=== PATIENT | female | born 1990 | race Caucasian/White ===

== ENCOUNTER → 2019-01-14 | Outpatient (REF) | payer OTHER, MEDICAID ==
[2019-01-14 21:45] LABS: CHLAMYDIA DNA AMPLIFICATION NEGATIVE (NEGATIVE); GC DNA AMPLIFICATION NEGATIVE (NEGATIVE)
== END ==
LOC: M SFHCWAGY 15:24
PROVIDERS: ATTEND Nurse Practitioner Women's Health
DX: Z12.4 Encounter for screening for malignant neoplasm of cervix (principal)

== ENCOUNTER → 2019-01-26 | Outpatient (CLI) | payer OTHER ==
--- NOTE | 2019-01-26 17:14 | REP ---
PELVIC ULTRASOUND: Real-time sonographic evaluation of the pelvis was performed utilizing transabdominal technique. Endovaginal exam not performed due to active menstruation. The bladder measures 5.6 x 5.2 x 9.3 cm. The uterus measures 11.6 x 3.3 x 4.9 cm. Endometrial thickness is 2 mm. Ovaries appear normal in size and echo texture, right ovary measuring 3.5 x 1.9 x 2.2 cm and left ovary 3.0 x 1.9 x 2.0 cm. No adnexal mass or free fluid is seen. There is no evidence of ovarian torsion with duplex Doppler evaluation. IMPRESSION: Essentially negative pelvic ultrasound. No adnexal mass or free fluid. Only transabdominal imaging was performed. Endovaginal imaging was not performed due to active menstruation. Electronically Signed by Jd Munoz MD 01/28/2019 10:23 A
== END ==
LOC: M RAD 15:06
PROVIDERS: ATTEND Nurse Practitioner Women's Health
DX: Z84.2 Family history of other diseases of the genitourinary system (principal)

== ENCOUNTER 2019-04-25 18:59 | Emergency (ER) | payer OTHER ==
[~2019-04-25] VITALS: Ht 152.4 cm; Wt 61.4 kg
[2019-04-25] MEDS ORDERED: FLUO10CA15 (19:19)
[2019-04-25] MEDS ORDERED: FAMO40TA3 (19:19)
[2019-04-25 19:54] LABS: BASO # 0.1 10^3/uL (0.0-0.2); BASO % 0.8 % (0.0-1.0); EOS # 0.6 10^3/uL (0.0-0.5); EOS % 6.5 % (0.0-3.0); HEMATOCRIT 38.2 % (36.0-47.0); LYMPH % 34.2 % (24.0-44.0); MEAN CORPUSCULAR HEMOGLOBIN 31.2 pg (27.0-33.0); MEAN CORPUSCULAR VOLUME 91.6 fl (80.0-96.0); MONO # 0.7 10^3/uL (0.0-0.8); MONO % 7.4 % (0.0-5.0); NEUTROPHILS # 4.5 10^3/uL (1.5-8.5); NEUTROPHILS % 50.9 % (36.0-66.0); PLATELET COUNT, AUTOMATED 297 10^3/uL (150-450); RED BLOOD COUNT 4.17 10^6/uL (4.00-5.40); WHITE BLOOD COUNT 8.8 10^3/uL (4.0-10.0)
[2019-04-25] MEDS ORDERED: NS 1,000 ML IV ONE (20:15)
[2019-04-25 20:20] LABS: HCG, SERUM QUALITATIVE NEGATIVE (NEGATIVE)
[2019-04-25 20:24] LABS: BLOOD UREA NITROGEN 11 MG/DL (7-18); CALCIUM LEVEL 9.1 MG/DL (8.5-10.1); CARBON DIOXIDE LEVEL 27 MEQ/L (21-32); CHLORIDE LEVEL 107 MEQ/L (98-107); CK-MB VALUE MASS < 1.0 NG/ML (<3.6); CPK CREATINE PHOSPHOKINASE 76 U/L (26-192); CREATININE FOR GFR 0.91 MG/DL (0.55-1.30); GLOMERULAR FILTRATION RATE > 60.0 (>60); GLUCOSE, FASTING 88 MG/DL (70-100); MB/CK RELATIVE INDEX 1.32 (< OR =4); SODIUM LEVEL 141 MEQ/L (136-145); TROPONIN I < 0.02 NG/ML (< 0.10)
--- NOTE | 2019-04-25 21:20 | REPVR ---
PROCEDURE INFORMATION: Exam: CT Head Without Contrast Exam date and time: 04/25/2019 8:42 PM Age: 28 years old Clinical indication: Pain; Syncope and collapse; Headache not specified; Additional info: Syncope with new onset headache TECHNIQUE: Imaging protocol: Computed tomography of the head without contrast. Radiation optimization: All CT scans at this facility use at least one of these dose optimization techniques: automated exposure control; mA and/or kV adjustment per patient size (includes targeted exams where dose is matched to clinical indication); or iterative reconstruction. COMPARISON: No relevant prior studies available. FINDINGS: Brain: Normal. No hemorrhage. Unremarkable white matter. No mass effect. Ventricles: Normal. No ventriculomegaly. Bones/joints: Unremarkable. No acute fracture. Sinuses: Visualized sinuses are unremarkable. No fluid levels. Mastoid air cells: Visualized mastoid air cells are well aerated. Soft tissues: Unremarkable. IMPRESSION: Negative noncontrast head CT. Electronically signed by: Trace White On 04/25/2019 21:20:02 PM
[2019-04-25 21:30] VITALS: BP 114/69
--- NOTE | 2019-04-26 05:48 | ECGEPIP ---
[facility] - ED Test Date: 2019-04-25 Pat Name: MICHELE BUSH Department: Room: - Gender: Female Podiatric Surgeon: GARCÍA : 1990 Requested By: STEPHEN Jordan Order Number: [id number] Reading MD: Indra Moses Measurements Intervals [place] Rate: 69 P: 65 MT: 161 QRS: 92 QRSD: 92 T: 61 QT: 403 QTc: 433 Interpretive Statements SINUS RHYTHM BORDERLINE RIGHT AXIS DEVIATION NONSPECIFIC T-WAVE ABNORMALITY NO PRIORS FOR COMPARISON Electronically Signed on 04-26-2019 5:47:50 EST by Indra Moses
== END 2019-04-25 21:57 | disposition home or self-care (01) ==
LOC: EDBD 18:59 → M ED 18:59
DX: R55 Syncope and collapse (principal); J45.909 Unspecified asthma, uncomplicated; F33.9 Major depressive disorder, recurrent, unspecified; F41.1 Generalized anxiety disorder; Z79.899 Other long term (current) drug therapy

== ENCOUNTER 2019-05-14 22:07 | Emergency (ER) | payer OTHER ==
[~2019-05-14] VITALS: Ht 152.4 cm; Wt 62.0 kg
[~2019-05-14 22:07] MED LIST: FAMO40TA3; FLUO10CA15
[2019-05-14] MEDS ORDERED: ALBU8.5H PO (23:06)
[2019-05-14 23:52] LABS: HEMATOCRIT 41.1 % (36.0-47.0); MEAN CORPUSCULAR HGB CONC 34.1 g/dl (32.0-36.5); MEAN CORPUSCULAR VOLUME 91.1 fl (80.0-96.0); PLATELET COUNT, AUTOMATED 314 10^3/uL (150-450); RED BLOOD COUNT 4.51 10^6/uL (4.00-5.40); WHITE BLOOD COUNT 8.3 10^3/uL (4.0-10.0)
[2019-05-14] MEDS ORDERED: FAMO40TA3 PO (23:55)
[2019-05-14] MEDS ORDERED: ALBU83IN INH (23:55)
[2019-05-14] MEDS ORDERED: FLUO10CA15 PO (23:55)
[2019-05-15 00:25] LABS: AMPHETAMINES LEVEL URINE NEGATIVE (NEGATIVE); BARBITURATES URINE NEGATIVE (NEGATIVE); BENZODIAZEPINES URINE NEGATIVE (NEGATIVE); CANNABINOIDS URINE NEGATIVE (NEGATIVE); COCAINE METABOLITE URINE NEGATIVE (NEGATIVE); METHADONE URINE NEGATIVE (NEGATIVE); OPIATES URINE NEGATIVE (NEGATIVE); PHENCYCLIDINE URINE NEGATIVE (NEGATIVE)
[2019-05-15 00:28] LABS: HCG, SERUM QUALITATIVE NEGATIVE (NEGATIVE)
[2019-05-15 00:35] LABS: ACETAMINOPHEN LEVEL < 2.0 UG/ML (10.0-30.0); ALBUMIN 4.4 GM/DL (3.2-5.2); ALT/SGPT 19 U/L (12-78); BILIRUBIN,DIRECT 0.3 MG/DL (0.0-0.2); BILIRUBIN,TOTAL 1.5 MG/DL (0.2-1.0); BLOOD UREA NITROGEN 9 MG/DL (7-18); CALCIUM LEVEL 9.4 MG/DL (8.5-10.1); CARBON DIOXIDE LEVEL 30 MEQ/L (21-32); CHLORIDE LEVEL 105 MEQ/L (98-107); CREATININE FOR GFR 0.88 MG/DL (0.55-1.30); ETHYL ALCOHOL (ETHANOL) < 0.003 % (0.000-0.010); GLOMERULAR FILTRATION RATE > 60.0 (>60); GLUCOSE, FASTING 88 MG/DL (70-100); POTASSIUM SERUM 3.8 MEQ/L (3.5-5.1); SALICYLATE LEVEL < 1.7 MG/DL (5.0-30.0); SODIUM LEVEL 138 MEQ/L (136-145); TOTAL PROTEIN 7.9 GM/DL (6.4-8.2)
--- NOTE | 2019-05-15 05:43 | ECGEPIP ---
[facility] - ED Test Date: 2019-05-15 Pat Name: MICHELE BUSH Department: Room: - Gender: Female Vascular Nurse: : 1990 Requested By: MARQUES Berrios Order Number: [id number] Reading MD: Indra Moses Measurements Intervals [place] Rate: 56 P: 50 VA: 154 QRS: 86 QRSD: 93 T: 28 QT: 419 QTc: 406 Interpretive Statements SINUS BRADYCARDIA BORDERLINE RIGHT AXIS DEVIATION NONSPECIFIC T-WAVE ABNORMALITY SIMILAR TO 04/25/19 Electronically Signed on 05-15-2019 5:43:15 EST by Indra Moses
[2019-05-15 09:27] VITALS: BP 130/66
== END 2019-05-15 09:30 ==
LOC: M ED 22:07
DX: F33.9 Major depressive disorder, recurrent, unspecified (principal); R45.851 Suicidal ideations; J45.909 Unspecified asthma, uncomplicated; F43.10 Post-traumatic stress disorder, unspecified; Z79.899 Other long term (current) drug therapy; Z91.018 Allergy to other foods
CPT/HCPCS: 36415; 80048; 80076; 80307; 84443; 84703; 85027; 93005; 99284; G0480

== ENCOUNTER → 2020-01-15 | Outpatient (CLI) | payer OTHER ==
[~2020-01-15] MED LIST changes: +ALBU8.5H PO; +ALBU83IN INH; +FAMO40TA3 PO; -FLUO10CA15; +FLUO10CA16; +FLUO10CA16 PO
--- NOTE | 2020-01-15 13:05 | REP ---
INDICATION: MEMORY LOSS. COMPARISON: Comparison CT study of the brain April 25, 2019.. TECHNIQUE: Axial and sagittal imaging planes are utilized for T1 and T2-weighted scans. Sequences include spin-echo, fast spin echo, FLAIR, and diffusion weighted sequences. FINDINGS: No bony calvarial lesion is seen. Craniocervical junction and upper cervical cord are normal in appearance. There is no MR evidence of significant paranasal sinus disease. No intraorbital abnormality is seen. The lateral, third, and fourth ventricles are normal in size and position. Munoz-white differentiation pattern is intact above and below the tentorium. There is no evidence of intracranial hemorrhage. No mass, infarction, extra-axial fluid collection or midline shift is seen. No abnormal white matter lesion is seen. IMPRESSION: Negative noncontrast brain MRI study. <Electronically signed by Jamin Chinchilla > 01/15/20 [id number]
== END ==
LOC: M RAD 11:26
PROVIDERS: ATTEND Physician Assistant
DX: R41.3 Other amnesia (principal)

== ENCOUNTER → 2020-04-22 | Outpatient (CLI) | payer OTHER ==
[~2020-04-22] MED LIST changes: +ARNU1INH INH; +FLON1SPR; +PROZ10CA7 PO
== END ==
LOC: M LABSMTC 10:05
PROVIDERS: ATTEND Anesthesiology
DX: Z01.812 Encounter for preprocedural laboratory examination (principal); Z20.822 Contact with and (suspected) exposure to COVID-19

== ENCOUNTER 2020-04-27 11:03 | Day surgery (SDC) | payer OTHER ==
[~2020-04-27] VITALS: Ht 154.9 cm; Wt 63.0 kg
[~2020-04-27 11:03] MED LIST changes: +BUPIVACAINE HCL 0.5% 10ML VIAL As Ordered ONE; +LIDOCAINE 1% MDV 20ML VIAL As Ordered ONE; +LR 1,000 ML IV ONE; +ceFAZolin SOD 2 GM in IV 1 EA IV ONE; +dexameTHASONE 4 MG/ML 1ML VIAL (J1100 PER 1MG) As Ordered ONE
--- OUTSIDE RECORDS SUMMARY | 2020-04-27 11:07 | CCD ---
Author Author [facility] Organization [facility] Address Unknown Phone Unavailable Care Team Providers Care Steam Press Operator Name Role Phone Tarah MONTANA DPM Unavailable Unavailable Tarah MONTANA DPM Unavailable Unavailable Tarah MONTANA DPM Unavailable Unavailable Tarah MONTANA DPM Unavailable Unavailable Tarah MONTANA DPM Unavailable Unavailable Tarah MONTANA DPM Unavailable Unavailable Tarah MONTANA DPM Unavailable Unavailable Tarah MONTANA DPM Unavailable Unavailable Tarah MONTANA DPM Unavailable Unavailable Tarah MONTANA DPM Unavailable Unavailable Tarah MONTANA DPM Unavailable Unavailable Tarah MONTANA DPM Unavailable Unavailable Tarah MONTANA DPM Unavailable Unavailable Tarah MONTANA DPM Unavailable Unavailable Tarah MONTANA DPM Unavailable Unavailable Tarah MONTANA DPM Unavailable Unavailable Tarah MONTANA DPM Unavailable Unavailable Tarah MONTANA DPM Unavailable Unavailable Tarah MONTANA DPM Unavailable Unavailable Tarah MONTANA DPM Unavailable Unavailable MAJAK, R ROSALIO DPM Unavailable Unavailable MAJAK, R ROSALIO DPM Unavailable Unavailable MAJAK, R ROSALIO DPM Unavailable Unavailable MAJAK, R ROSALIO DPM Unavailable Unavailable MAJAK, R ROSALIO DPM Unavailable Unavailable MAJAK, R ROSALIO DPM Unavailable Unavailable MAJAK, R ROSALIO DPM Unavailable Unavailable MAJAK, R ROSALIO DPM Unavailable Unavailable MAJAK, R ROSALIO DPM Unavailable Unavailable MAJAK, R ROSALIO DPM Unavailable Unavailable CHROSTOWSKI, BUCK MD Unavailable Unavailable CHROSTOWSKI, BUCK MD Unavailable Unavailable CHROSTOWSKI, BUCK MD Unavailable Unavailable CHROSTOWSKI, BUCK MD Unavailable Unavailable CHROSTOWSKI, BUCK MD Unavailable Unavailable CHROSTOWSKI, BUCK MD Unavailable Unavailable CHROSTOWSKI, BUCK MD Unavailable Unavailable CHROSTOWSKI, BUCK MD Unavailable Unavailable CHROSTOWSKI, BUCK MD Unavailable Unavailable CHROSTOWSKI, BUCK MD Unavailable Unavailable CHROSTOWSKI, BUCK MD Unavailable Unavailable CHROSTOWSKI, BUCK MD Unavailable Unavailable CHROSTOWSKI, BUCK MD Unavailable Unavailable CHROSTOWSKI, BUCK MD Unavailable Unavailable CHROSTOWSKI, BUCK MD Unavailable Unavailable CHROSTOWSKI, BUCK MD Unavailable Unavailable CHROSTOWSKI, BUCK MD Unavailable Unavailable CHROSTOWSKI, BUCK MD Unavailable Unavailable CHROSTOWSKI, BUCK MD Unavailable Unavailable CHROSTOWSKI, BUCK MD Unavailable Unavailable CHROSTOWSKI, BUCK MD Unavailable Unavailable CHROSTOWSKI, BUCK MD Unavailable Unavailable CHROSTOWSKI, BUCK MD Unavailable Unavailable CHROSTOWSKI, BUCK MD Unavailable Unavailable CHROSTOWSKI, BUCK MD Unavailable Unavailable CHROSTOWSKI, BUCK MD Unavailable Unavailable CHROSTOWSKI, BUCK MD Unavailable Unavailable CHROSTOWSKI, BUCK MD Unavailable Unavailable CHROSTOWSKI, BUCK MD Unavailable Unavailable CHROSTOWSKI, BUCK MD Unavailable Unavailable CHROSTOWSKI, BUCK MD Unavailable Unavailable CHROSTOWSKI, BUCK MD Unavailable Unavailable CHROSTOWSKI, BUCK MD Unavailable Unavailable CHROSTOWSKI, BUCK MD Unavailable Unavailable CHROSTOWSKI, BUCK MD Unavailable Unavailable CHROSTOWSKI, BUCK MD Unavailable Unavailable CHROSTOWSKI, BUCK MD Unavailable Unavailable CHROSTOWSKI, BUCK MD Unavailable Unavailable CHROSTOWSKI, BUCK MD Unavailable Unavailable CHROSTOWSKI, BUCK MD Unavailable Unavailable Colon, Luis M Unavailable Unavailable Colon, Luis M Unavailable Unavailable Colon, Luis M Unavailable Unavailable Colon, Luis M Unavailable Unavailable Stefan, M Perri JAVA SYBASE DEVELOPER Unavailable Unavailable Stefan, M Perri JAVA SYBASE DEVELOPER Unavailable Unavailable Stefan, M Perri JAVA SYBASE DEVELOPER Unavailable Unavailable Stefan, M Perri JAVA SYBASE DEVELOPER Unavailable Unavailable Stefan, M Perri JAVA SYBASE DEVELOPER Unavailable Unavailable Stefan, M Perri JAVA SYBASE DEVELOPER Unavailable Unavailable Stefan, M Perri JAVA SYBASE DEVELOPER Unavailable Unavailable Stefan, M Perri JAVA SYBASE DEVELOPER Unavailable Unavailable Stefan, M Perri JAVA SYBASE DEVELOPER Unavailable Unavailable Stefan, M Perri JAVA SYBASE DEVELOPER Unavailable Unavailable Stefan, M Perri JAVA SYBASE DEVELOPER Unavailable Unavailable Stefan, M Perri JAVA SYBASE DEVELOPER Unavailable Unavailable Stefan, M Perri JAVA SYBASE DEVELOPER Unavailable Unavailable BILAL, AHMAD MD Unavailable Unavailable BILAL, AHMAD MD Unavailable Unavailable BILAL, AHMAD MD Unavailable Unavailable BILAL, AHMAD MD Unavailable Unavailable BILAL, AHMAD MD Unavailable Unavailable BILAL, AHMAD MD Unavailable Unavailable BILAL, AHMAD MD Unavailable Unavailable BILAL, AHMAD MD Unavailable Unavailable BILAL, AHMAD MD Unavailable Unavailable Mota, C Kinsey Unavailable Unavailable Mota, C Kinsey Unavailable Unavailable Mota, C Kinsey Unavailable Unavailable Mota, C Kinsey Unavailable Unavailable Mota, C Kinsey Unavailable Unavailable Mota, C Kinsey Unavailable Unavailable Mota, C Kinsey Unavailable Unavailable Mota, C Kinsey Unavailable Unavailable Mota, C Kinsey Unavailable Unavailable Mota, C Kinsey Unavailable Unavailable Mota, C Kinsey Unavailable Unavailable Mota, C Kinsey Unavailable Unavailable Mota, C Kinsey Unavailable Unavailable Mota, C Kinsey Unavailable Unavailable Mota, C Kinsey Unavailable Unavailable Mota, C Kinsey Unavailable Unavailable Mota, C Kinsey Unavailable Unavailable Mota, C Kinsey Unavailable Unavailable Mota, C Kinsey Unavailable Unavailable Mota, C Kinsey Unavailable Unavailable Mota, C Kinsey Unavailable Unavailable Mota, C Kinsey Unavailable Unavailable Mota, C Kinsey Unavailable Unavailable Re-disclosure Warning The records that you are about to access may contain information from federally-assisted alcohol or drug abuse programs. If such information is present, then the following federally mandated warning applies: This information has been disclosed to you from records protected by federal confidentiality rules (42 CFR part 2). The federal rules prohibit you from making any further disclosure of this information unless further disclosure is expressly permitted by the written consent of the person to whom it pertains or as otherwise permitted by 42 CFR part 2. A general authorization for the release of medical or other information is NOT sufficient for this purpose. The Federal rules restrict any use of the information to criminally investigate or prosecute any alcohol or drug abuse patient.The records that you are about to access may contain highly sensitive health information, the redisclosure of which is protected by Article 27-F of the [facility] Public Health law. If you continue you may have access to information: Regarding HIV / AIDS; Provided by facilities licensed or operated by the [facility] Office of Mental Health; or Provided by the [facility] Office for People With Developmental Disabilities. If such information is present, then the following [facility] mandated warning applies: This information has been disclosed to you from confidential records which are protected by state law. State law prohibits you from making any further disclosure of this information without the specific written consent of the person to whom it pertains, or as otherwise permitted by law. Any unauthorized further disclosure in violation of state law may result in a fine or longterm sentence or both. A general authorization for the release of medical or other information is NOT sufficient authorization for further disc losure. Allergies and Adverse Reactions Type Description Substance Reaction Status Data Source(s ) Drug allergy shellfish derived shellfish derived ANAPHYLAXIS [facility] Drug allergy gluten gluten RASH/HIVES [facility] Drug allergy lactose lactose RASH/HIVES [facility] Encounters Encounter Providers Location Date Indications Data Source(s ) Outpatient Attender: BUCK MEIER MD Main Office 02/25/2020 08:30:00 AM EST [facility] ([facility] Outpatient Attender: ROSALIO MONTANA [facility] Office 10/2019 10:00:00 AM EST [facility] ([facility] Outpatient Attender: ROSALIO MONTANA [facility] 10/10 10:15:00 AM EDT [facility] ([facility] Outpatient [facility] [facility] [address] 09/29/2019 12:00:00 AM EDT eCW1 ([facility]) Unknown [address] [facility] [address] 09/10/2019 12:00:00 AM EDT eCW1 ([facility]) Outpatient Attender: Perri Payne mitter: BRIAN AGUILAR MDConsultant: BRIAN AGUILAR MD 05/15/2019 10:45:00 AM EST Depression/SI [facility] Depression/SI Outpatient Attender: Luis M YooAdmitter : BRIAN AGUILAR MDConsultant: BRIAN AGUILAR MD 05/15/2019 10:45:00 AM EST Depression/SI [facility] Depression/SI Inpatient Attender: BRIAN AGUILAR MDAdmitter: BRIAN AGUILAR MD 05/15/2019 10:45:00 AM EST - 05/18/2019 01:49:00 PM EDT Depression/SI [facility] Depression/SI Patient discharged. Outpatient Attender: Kinsey Barnett er: BRIAN AGUILAR MDConsultant: BRIAN AGUILAR MD 05/15/2019 10:45:00 AM EST Depression/SI [facility] Depression/SI Outpatient Attender: Kinsey Barnett er: BRIAN AGUILAR MDConsultant: BRIAN AGUILAR MD 05/15/2019 10:45:00 AM EST Depression/SI [facility] Depression/SI Outpatient 05/01/2019 10:19:00 AM EST [facility] Medications Medication Brand Name Start Date Product Form Dose Route Admi nistrative Instructions Pharmacy Instructions Status Indications Reaction Description Data Source(s) Flonase Allergy Relief Flonase Allergy Relief 02/25/2020 12:00:[address] active [facility] ([facility] 14 ACTUAT fluticasone furoate 0.1 MG/ACTUAT Dry Powder Inhaler [Arnuity] Arnuity Ellipta 02/25/2020 12:00:00 AM EST RESPIRATORY active [facility] ([facility]) Naproxen 500 MG Oral Tablet Naproxen 11/04/2019 12:00:00 AM EDT active [facility] ([facility] Insurance Providers Payer name Policy type / Coverage type Policy ID Covered alliance party ID Covered alliance party's relationship to anderson Policy Anderson Plan Information JULITA [id number] SP [id number] JULITA [place] O [id number] S [id number] [id number] [id number] SP [id number] JULITA [id number] SP [id number] SELF PAY JULITA [id number] SP [id number] MEDICAID [id number] SP [id number] Problems, Conditions, and Diagnoses Code Display Name Description Problem Type Effective Dates Data Source(s) 43432818 Allergic rhinitis due to pollen Allergic rhiniti s due to pollen Problem 02/25/2020 12:00:00 AM EST [facility] ([facility]) Note: 2+ positive reaction to weed polle n, tree mix #1 (birch, oak, maple) and tree mix #2 (dimple, cottonwood, elm, pine) on intradermal test. Other adverse food reactions, not elsewh ere classified, initial encounter Other adverse food reactions, not elsewhere classified, initial encounter Problem 02/25/2020 12:00:00 AM EST [facility] ([facility] [id number] Mild persistent asthma Mild persistent asthma Problem 02/25/2020 12:00:00 AM EST [facility] ([facility] ) [id number] Allergic rhinitis due to house dust mite Allergic rhinitis due to house dust mite Problem 02/25/2020 12:00:00 AM EST [facility] ([facility]) Note: 4+ reaction to dust mites on intra dermal test. [id number] Plantar fascial fibromatosis Plantar fascial fibromato sis Problem 11/11/2019 12:00:00 AM EDT [facility] ([facility] [id number] Pronation Pronation Problem 11/11/2019 12:00:00 AM ED T [facility] ([facility] [id number] Pronation Pronation Problem 11/11/2019 12:00:00 AM ED T [facility] ([facility] [id number] Swelling of first metatarsal joint of sanchez llux of left foot Swelling of first metatarsal joint of hallux of left foot Problem 11/11/2019 12:00:00 AM EDT [facility] ([facility] [id number] Swelling of first metatarsal joint of sanchez llux of right foot Swelling of first metatarsal joint of hallux of right foot Problem 11/11/2019 12:00:00 AM EDT [facility] ([facility] J30.89 51438131 Non-seasonal allergic rhinitis, unspecifi ed trigger Problem 09/29/2019 12:00:00 AM EDT eCW1 ([facility]) C44.91 [id number] Basal cell carcinoma of skin, unspecified Problem 09/01/2019 12:00:00 AM EDT eCW1 ([facility]) R41.3 [id number] Memory loss Problem 08/31/2019 12:00:00 AM E DT eCW1 ([facility]) K21.9 Gastro-esophageal reflux disease without esophagitis K21.9 - Gastro- esophageal reflux disease without esophagitis Diagnosis 05/15/19 10:45:00 AM [employer] J45.909 Unspecified asthma, uncomplicated J45.90 9 - Unspecified asthma, uncomplicated Diagnosis 05/15/2019 10:45:00 AM [employer] Z13.9 Encounter for screening, unspecified Z13 .9 - Encounter for screening, unspecified Diagnosis 05/15/2019 10:45:00 AM [employer] F43.10 Post-traumatic stress disorder, unspecif ied F43.10 - Post-traumatic stress disorder, unspecified Diagnosis 05/15/2019 10:45:00 AM [employer] F41.1 Generalized anxiety disorder F41.1 - Generalized anxiety disorder Diagnosis 05/15/2019 10:45:00 AM [employer] F33.1 Major depressive disorder, recurrent, mo derate F33.1 - Major depressive disorder, recurrent, moderate Diagnosis 05/15/2019 10:45:00 AM EST [employer] Surgeries/Procedures Procedure Description Date Indications Data Source(s) PERCUTANEOUS TESTS W/ALLERGENIC EXTRACTS 02/25/2020 12 :00:00 AM EST [facility] ([facility]) INTRACUTANEOUS TESTS W/ALLERGENIC EXTRACTS 02/25/2020 12:00:00 AM EST [facility] ([facility]) RADEX FOOT COMPLETE MINIMUM 3 VIEWS 11/04/2019 12:00:0 0 AM EDT [facility] ([facility] RADEX FOOT COMPLETE MINIMUM 3 VIEWS 11/04/2019 12:00:0 0 AM EDT [facility] ([facility] Results ID Date Data Source [id number] 04/22/2020 09:40:00 AM EST [facility] Name Value Range Interpretation Code Description Data Michelle rce(s) Supporting Document(s) SARS coronavirus 2 RNA Not Detected [facility] [place] This lab was ordered by [facility] and reported by [facility]. Procedure Social History Code Duration Value Status Description Data Source(s ) Smoking 02/25/2020 12:00:00 AM EST Patient has never smoked co mpleted Patient has never smoked [facility] ([facility] ) Smoking 09/29/2019 12:00:00 AM EDT Never Smoker completed Never S moker eCW1 ([facility]) Smoking 08/31/2019 12:00:00 AM EDT Never Smoker completed Never S moker eCW1 ([facility]) Vital Signs ID Date Data Source UNK Name Value Range Interpretation Code Description Data Source(s) Body mass index (BMI) [Ratio] 26.4 kg/m2 26.4 k g/m2 [facility] ([facility]) Diastolic blood pressure 60 mm[Hg] 60 mm[Hg] [facility] ([facility]) Systolic blood pressure 98 mm[Hg] 98 mm[Hg] M EDENT ([facility]) Respiratory rate 16 /min 16 /min [facility] ( [facility]) Heart rate 64 /min 64 /min [facility] ([facility] Body height 60.5 [in_i] 60.5 [in_i] [facility] 5'0.50" Body weight 137.50 [lb_av] 137.50 [lb_av] MEDEN T ([facility]) Body mass index (BMI) [Ratio] 25.6 kg/m2 25.6 k g/m2 [facility] ([facility] Heart rate 57 /min 57 /min [facility] ([facility] Diastolic blood pressure 48 mm[Hg] 48 mm[Hg] [facility] ([facility] Systolic blood pressure 102 mm[Hg] 102 mm[Hg] M EDENT ([facility] Body weight 135.31 [lb_av] 135.31 [lb_av] MEDEN T ([facility] Body height 61 [in_i] 61 [in_i] [facility] ([facility] 5'1" Body mass index (BMI) [Ratio] 25.8 kg/m2 25.8 k g/m2 [facility] ([facility] Heart rate 73 /min 73 /min [facility] ([facility] Diastolic blood pressure 62 mm[Hg] 62 mm[Hg] [facility] ([facility] Systolic blood pressure 96 mm[Hg] 96 mm[Hg] M EDENT ([facility] Body weight 136.50 [lb_av] 136.50 [lb_av] MEDEN T ([facility] Body height 61 [in_i] 61 [in_i] [facility] ([facility] 5'1" Diastolic blood pressure 60 mm[Hg] 60 mm[Hg] eCW1 ([facility]) Systolic blood pressure 100 mm[Hg] 100 mm[Hg] e CW1 ([facility]) Body temperature 97.8 [degF] 97.8 [degF] eCW1 ( [facility]) Respiratory rate 18 /min 18 /min eCW1 ([facility]) Heart rate 58 /min 58 /min eCW1 ([facility]) Body mass index (BMI) [Ratio] 25.66 kg/m2 25.66 kg/m2 eCW1 ([facility]) Body height [in_i] eCW1 ([facility]) Body weight 135.8 [lb_av] 135.8 [lb_av] eCW1 ([facility])
--- OUTSIDE RECORDS SUMMARY | 2020-04-27 11:07 | CCD | Continuity of Care Document ---
Author Author Elayne MONTANA DPRomi Organization Unknown Address [address] [place] [address], [address] [place] [address] Phone [phone] Care Team Providers Care Writing Tutor Name Role Phone Sunitha Whiteside HAYDEN AUTM [phone] Problems Active Problems Provider Date Swelling of first metatarsal joint of hallux of right foot A nemo Montana DPM Onset: 11/11/2019 Swelling of first metatarsal joint of hallux of left foot An adonis Montana DPM Onset: 11/11/2019 Pronation Leonardo Montana DPM Onset: 11/11/2019 Pronation Leonardo Montana DPM Onset: 11/11/2019 Plantar fascial fibromatosis Leonardo Montana DPM Onset: 04/2019 Social History Type Date Description Comments Sex Unknown ETOH Use Occasionally consumes alcohol Tobacco Use Start: Unknown Patient has never smoked Allergies, Adverse Reactions, Alerts Active Allergies Reaction Severity Comments Date Shellfish-Derived Products 0 11/04/2019 Medications Active Medications SIG Qnty Indications Ordering Provide r Date Naproxen 500mg Tablets 1 tab twice daily with food 60tabs Leonardo Montana DPM 11/04/2019 Fluoxetine HCL Unknown Immunizations Description No Information Available Vital Signs Date Vital Result Comment 02/16/2020 11:12am Height 61 inches 5'1" Weight 135.31 lb BP Systolic 102 mmHg BP Diastolic 48 mmHg Heart Rate 57 /min BMI (Body Mass Index) 25.6 kg/m2 11/04/2019 10:41am Height 61 inches 5'1" Weight 136.50 lb BP Systolic 96 mmHg BP Diastolic 62 mmHg Heart Rate 73 /min BMI (Body Mass Index) 25.8 kg/m2 Results Description No Information Available Procedures Date Code Description Status 11/04/2019 53077 X-Ray Foot Complete Completed 11/04/2019 75928 X-Ray Foot Complete Completed Medical Devices Description No Information Available Encounters Type Date Location Provider Dx Diagnosis Office Visit 02/16/2020 11:00a [place] [facility] Leonardo Montana DPM M21.612 Bunion of left foot M84.872 Other disorders of continuit y of bone, left ankle and foot Office Visit 11/04/2019 10:15a [place] [facility] Leonardo Montana DPM M21.611 Bunion of right foot M21.612 Bunion of left foot M21.6x1 Other acquired deformities o f right foot M21.6x2 Other acquired deformities o f left foot M72.2 Plantar fascial fibromatosis Assessments Date Code Description Provider 02/16/2020 M21.612 Bunion of left foot Leonardo lozada DPM 02/16/2020 M84.872 Other disorders of continuity of bone, left ankle and foot Leonardo Montana DPM 11/04/2019 M21.611 Bunion of right foot Leonardo flynn DPM 11/04/2019 M21.612 Bunion of left foot Leonardo lozada DPM 11/04/2019 M21.6x1 Other acquired deformities of ri ght foot Leonardo Montana DPM 11/04/2019 M21.6x2 Other acquired deformities of le ft foot Leonardo Montana DPM 11/04/2019 M72.2 Plantar fascial fibromatosis And cailin Montana DPM Plan of Treatment No Information Available Functional Status Description No Information Available Mental Status Description No Information Available Referrals Refer to Reason for Referral Status Appt Date Leonardo Montana DPM Created [address] [facility] [address] [place] [address] [phone]
--- OUTSIDE RECORDS SUMMARY | 2020-04-27 11:07 | CCD | Continuity of Care Document ---
Author Author Elayne MEIER M.D. Organization Unknown Address [address], [address], [place] [address] Phone [phone] Care Team Providers Care Private Pilot Name Role Phone Sunitha Whiteside HAYDEN AUTM [phone] Problems Active Problems Provider Date Allergic rhinitis due to house dust mite Jarrett Meier M.D. Onset: 02/25/2020 Note: 4+ reaction to dust mites on intra dermal test. Mild persistent asthma Jarrett Meier M.D. Onset: 02/08 Other adverse food reactions, not elsewhere classified , initial encounter Jarrett Meier M.D. Onset: 02/25/2020 Allergic rhinitis due to pollen Jarrett Meier M.D. On set: 02/25/2020 Note: 2+ positive reaction to weed polle n, tree mix #1 (birch, oak, maple) and tree mix #2 (dimple, cottonwood, elm, pine) on intradermal test. Social History Type Date Description Comments Sex Unknown Tobacco Use Reviewed: 02/25/20 Patient has never smoked Smoking Status Reviewed: 02/25/20 Patient has never smoked Allergies, Adverse Reactions, Alerts Description No Known Drug Allergies Medications Active Medications SIG Qnty Indications Ordering Provide r Date Flonase Allergy Relief 50mcg/Act Suspension 2 sprays each nostril every night 9.900ml J30.89 Jarrett Meier M.D. 02/25/2020 Arnuity Ellipta 100mcg/Act Aerosol inhale 1 puff (100 mcg) by inhalation route once daily at the same time each day 30units J45.30 Jarrett Meier M.D. 02/25/2020 Fluoxetine HCL 20mg Capsules Take 1 Capsule By Mouth Once Daily Unknown 000 Ventolin HFA 108(90Base) mcg/Act A erosol inhale 2 puffs (180) mcg by mouth every 4-6 hours as needed and 15 minutes prior to exercise Unknown Immunizations Description No Information Available Vital Signs Date Vital Result Comment 02/25/2020 9:41am Weight 137.50 lb Height 60.5 inches 5'0.50" Heart Rate 64 /min Respiratory Rate 16 /min BP Systolic 98 mmHg BP Diastolic 60 mmHg BMI (Body Mass Index) 26.4 kg/m2 Results Description No Information Available Procedures Date Code Description Status 02/25/2020 77191 Allergy Tests Intrad ermal W/ Allergenic Extr Immediate Reaction Completed 02/25/2020 31303 Allergy Tests Percutaneous W/ Al lergenic Extracts Completed Medical Devices Description No Information Available Encounters Type Date Location Provider Dx Diagnosis Office Visit 02/25/2020 9:30a [facility] Jarrett Meier M.D. T78.1xxA Oth adverse food reactions, not elsewhere classified, init J30.89 Other allergic rhinitis J30.1 Allergic rhinitis due to ric sameer J45.30 Mild persistent asthma, unco mplicated Assessments Date Code Description Provider 02/25/2020 T78.1xxA Other adverse food r eactions, not elsewhere classified, initial encounter Jarrett Meier M.D. 02/25/2020 J30.89 Allergic rhinitis due to house d ust mite Jarrett Meier M.D. 02/25/2020 J30.1 Allergic rhinitis due to pollen Jarrett Meier M.D. 02/25/2020 J45.30 Mild persistent asthma Jarrett martinez M.D. Plan of Treatment Future Appointment(s):* 05/26/2020 3:30 pm - Jarrett Meier M.D. at Main Office 02/25/2020 - Jarrett Meier M.D.* T78.1xxA Other adverse food reactions, not elsewhere classified, initial encounter* New Labs:* Ige Shrimp, Ordered: 02/25/20 * Ige Lobster, Ordered: 02/25/20 * Allergy Crab Ige, Ordered: 02/25/20 * Ige Clam, Ordered: 02/25/20 * Ige Oyster, Ordered: 02/25/20 * Ige Mussel, Ordered: 02/25/20 * Ige Scallop, Ordered: 02/25/20 * Recommendations:* I still decided to run IgE RAST to shellfish (more significant reaction with immediate throat symptoms) in order to reconfirm negative skin test. Should avoid exposure to shellfish till then. * J30.89 Allergic rhinitis due to house dust mite* New Medication:* Flonase Allergy Relief 50 mcg/Act - 2 sprays each nostril every night * Recommendations:* I reviewed effective allergy avoidance measures for dust mites. I suggested to start Mrs. Contreras on Flonase that should help with congestion and to use antihistamine prn itching and sneezing. Nasal spray should be used consistently every night in order to be effective. Oral antihistamine should help with itchy eyes, nose and sneezing when needed. * J30.1 Allergic rhinitis due to pollen* Recommendations:* I reviewed allergy avoidance measures for pollen that may possibly help with symptoms. * J45.30 Mild persistent asthma* New Medication:* Arnuity Ellipta 100 mcg/Act - inhale 1 puff (100 mcg) by inhalation route once daily at the same time each day * Recommendations:* Because of persistence of asthma symptoms I recommended to start her on low dose ICS such as Arnuity Ellipta that he should use every day on a consistent daily basis. I may consider to stop that medication during summer months if she does fine for the next few months. She should still use albuterol prn cough and wheezing. In a meantime I reviewed with his caregiver the risks and benefits associated with use of ICS and explained proper MDI technique. * All * Follow up:* 3 months. Sooner if needed. Will call her with results of IgE RAST to shellfish when I see those back. Functional Status Description No Information Available Mental Status Description No Information Available Referrals Description No Information Available
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
--- OUTSIDE RECORDS SUMMARY | 2020-04-27 11:07 | CCD | Continuity of Care Document ---
Author Author Elayne MONTANA DPRomi Organization Unknown Address [address] [place] [address], [address] [place] [address] Phone [phone] Care Team Providers Care Surveying Technician Name Role Phone Sunitha Whiteside HAYDEN AUTM [phone] Problems Active Problems Provider Date Swelling of [...] Available Procedures Date Code Description Status 11/04/2019 31972 X-Ray Foot Complete Completed 11/04/2019 67660 X-Ray Foot Complete Completed Medical Devices Description No Information Available Encounters Type Date Location Provider Dx Diagnosis Office Visit 11/04/2019 10:15a [place] [facility] Leonardo Montana DPM M21.611 Bunion of right foot M21.612 Bunion of left foot M21.6x1 Other acquired deformities o f right foot M21.6x2 Other acquired deformities o f left foot M72.2 Plantar fascial fibromatosis Assessments Date Code Description Provider 11/04/2019 M21.611 Bunion of right foot Leonardo [...] Description No Information Available Referrals Refer to Dr Reason for Referral Status Appt Date Leonardo Montana DPM Created [address] [place] [address] [phone]
--- OUTSIDE RECORDS SUMMARY | 2020-04-27 11:07 | CCD | Continuity of Care Document ---
Author Author Elayne MEIER M.D. Organization Unknown Address [address], [address], [place] [address] Phone [phone] Care Team Providers Care Gas Station Cashier Name Role Phone Stevo Sunitha HAYDEN AUTM [phone] Problems Active Problems Provider Date Other adverse food reactions, not elsewhere classified , initial encounter Jarrett Meier M.D. Onset: 02/25/2020 Mild persistent asthma Jarrett Meier M.D. Onset: 02/08 Allergic rhinitis due to house dust mite Jarrett Meier M.D. Onset: 02/25/2020 Social History Type Date Description Comments Sex [...] 1 Capsule By Mouth Once Daily Unknown 00/0 Ventolin HFA 108(90Base) mcg/Act A erosol inhale [...] kg/m2 Results Description No Information Available Procedures Description No Information Available Medical Devices Description No Information Available Encounters Description No Information Available Assessments Date Code Description Provider 02/25/2020 T78.1xxA Other adverse food r eactions, not elsewhere classified, initial encounter Jarrett Meier M.D. 02/25/2020 J30.89 Allergic rhinitis due to house d ust mite Jarrett Meier M.D. 02/25/2020 J45.30 Mild persistent asthma Jarrett martinez M.D. Plan of Treatment 02/25/2020 - Jarrett Meier M.D.* T78.1xxA Other adverse food reactions, not elsewhere classified, initial encounter* New Labs:* Ige Shrimp, Ordered: 02/25/20 * Ige Lobster, Ordered: 02/25/20 * Allergy Crab Ige, Ordered: 02/25/20 * Ige Clam, Ordered: 02/25/20 * Ige Oyster, Ordered: 02/25/20 * Ige Mussel, Ordered: 02/25/20 * Ige Scallop, Ordered: 02/25/20 * J30.89 Allergic rhinitis due to house dust mite* New Medication:* Flonase Allergy Relief 50 mcg/Act - 2 sprays each nostril every night * Recommendations:* The patient should continue using nasal spray every night. The spray should be used consistently to be effective. * J45.30 Mild persistent asthma* New Medication:* Arnuity Ellipta 100 mcg/Act - inhale 1 puff (100 mcg) by inhalation route once daily at the same time each day Functional Status Description No Information Available Mental Status Description No Information Available Referrals Description No Information Available
[2020-04-27] MEDS ORDERED: MIDAZOLAM INJ 2MG/2ML VIAL (J2250 PER 1MG) As Ordered ONE (12:20)
[2020-04-27] MEDS ORDERED: dexameTHASONE 4 MG/ML 1ML VIAL (J1100 PER 1MG) As Ordered ONE (12:20)
[2020-04-27] MEDS ORDERED: ONDANSETRON 4MG/2ML VIAL As Ordered ONE ×2 (12:20→16:19)
[2020-04-27] MEDS ORDERED: propofoL 200 MG/20 ML VIAL As Ordered ONE (12:20)
[2020-04-27] MEDS ORDERED: KETOROLAC 60MG 2ML VIAL As Ordered ONE (12:20)
[2020-04-27] MEDS ORDERED: LIDOCAINE 2% 100MG/5ML SDV (FOR ANES.) As Ordered ONE (12:20)
[2020-04-27] MEDS ORDERED: fentaNYL 100 MCG/2 ML INJECTION (J3010) As Ordered ONE ×2 (12:20→16:19)
[2020-04-27] MEDS ORDERED: ONDA4TAB6 PO (15:55)
[2020-04-27] MEDS ORDERED: HYDR-3713 PO (15:55)
[2020-04-27] MEDS ORDERED: oxyCODONE 5MG TAB As Ordered ONE (16:19)
[2020-04-27] MEDS ORDERED: METOCLOPRAMIDE INJ 10MG/2ML VIAL (J2765 PER 1) As Ordered ONE (16:40)
[2020-04-27] MEDS ORDERED: oxyCODONE 5MG TAB PO PRN (16:45)
[2020-04-27] MEDS ORDERED: LR 1,000 ML IV SCH (16:45)
[2020-04-27] MEDS ORDERED: HYDROMORPHONE HCL 0.5 MG/ 0.5 ML SYRINGE (J1170 PER 1) IV PRN (16:45)
[2020-04-27] MEDS ORDERED: fentaNYL 100 MCG/2 ML INJECTION (J3010) IV PRN (16:45)
[2020-04-27] MEDS ORDERED: ONDANSETRON 4MG/2ML VIAL IV PRN (16:45)
[2020-04-27] MEDS ORDERED: METOCLOPRAMIDE INJ 10MG/2ML VIAL (J2765 PER 1) IV PRN (17:00)
[2020-04-27 17:56] VITALS: BP 102/56
--- NOTE | 2020-04-28 04:51 | REP ---
INDICATION: LEFT FOOT LAPIDUS BUNIONECTOMY-MINI C COMPARISON: None. TECHNIQUE: Intraoperative fluoroscopic imaging using portable C-arm technique. FINDINGS: Images demonstrate the patient to be status post satisfactory fixation at the 1st tarsometatarsal joint. Total fluoroscopic time 75 seconds. IMPRESSION: Status post satisfactory fixation at the 1st tarsometatarsal joint. <Electronically signed by Cheikh Chaidez > 04/28/20 0442
--- NOTE | 2020-04-28 09:27 | RO ---
OPERATIVE NOTE DATE OF OPERATION: 04/27/2020 PREOPERATIVE DIAGNOSIS: Bunion, hallux valgus. POSTOPERATIVE DIAGNOSIS: Bunion, hallux valgus. PROCEDURE: Left foot Lapidus bunionectomy and Devan osteotomy. SURGEON: Leonardo Ambrose DPM LIGHT ADJUSTER: None. ANESTHESIA: General LMA anesthesia with preop injection of 20 mL of 1:1 mix of 1% Lidocaine plain and 0.5% Marcaine plain. ESTIMATED BLOOD LOSS: Minimal. MATERIALS: Treace Medical Lapiplasty System and Arthrex DynaNite staple, 3-0 and 4-0 Vicryl, nylon. INJECTABLES: None. COMPLICATIONS: None. CONDITION: Stable. INDICATIONS FOR PROCEDURE: Elayne Lyons is a 29-year-old female who presented to [facility] with painful bunion to her left foot. She presents today for surgical correction. The patient's side and site were identified and marked in the preoperative area. Consent was reviewed and obtained. All risks, complications, and alternatives to the procedure were explained to the patient in detail and all questions were answered. DESCRIPTION OF PROCEDURE: The patient was brought to the operating room and placed on the operating room table in the supine position. General LMA anesthesia was delivered by the anesthesia team. Preop injection of 20 mL of 1:1 mixture of 1% Lidocaine plain and 0.5% Marcaine plain were injected into the left foot. The left foot was prepped and draped in a normal sterile fashion. A tourniquet was applied and inflated to 250 mmHg. A dorsal incision was made over the 1st metatarsocuneiform joint and carried through with #15 blade. Dissection was carried until the joint was identified. A small nerve was identified and was retracted using vessel loops. Linear capsulotomy was performed exposing the metatarsocuneiform joint. The plantar ligaments were released and the joint was mobilized allowing the rotation of the metatarsal bone. Following this a lateral release was performed at the 1st interspace releasing the lateral capsule and sesamoidal ligaments and adductor tendon. A joystick guidewire was placed at the base of the 1st metatarsal and reduction was able to be visualized using C-arm guidance. A stab incision was made over the 2nd metatarsal and the compressor was applied reducing the intermetatarsal angle. Following this the Treace Medical Lapiplasty cut guide was placed over the 1st metatarsocuneiform joint and the cartilage from the base of the metatarsal and distal aspect of the medial cuneiform were removed with sagittal saw through the cut guide. Bone surfaces were fenestrated with drill. Following this the compressor was applied compressing the joint. Position was verified with complete reduction of the intermetatarsal deformity under C-arm guidance. Following this the dorsal and medial plates with the locking screws were applied and again position of these was verified on C-arm. There remained some valgus deformity of the hallux so an Devan procedure was performed at the proximal phalanx, removing a medial wedge of cortex effectively placing the toe in a more medial position. This was fixated with an Arthrex DynaNite staple. Wedge of medial capsule from the 1st metatarsophalangeal joint was removed and capsular repair was then performed with 3-0 Vicryl, subcutaneous closure of 4-0 Vicryl and skin closure of 4-0 nylon. Prior to this the site was irrigated with normal saline solution. The medial eminence of the metatarsal head was resected with sagittal saw. Sterile dressings were applied and tourniquet was deflated. A posterior splint was applied. The patient was brought to PACU with vital signs stable and neurovascular status intact. She will be nonweightbearing with crutches. She will follow up in the office in two days.
== END 2020-04-27 18:00 | disposition home or self-care (01) ==
LOC: M SDC 11:03
PROVIDERS: ATTEND Podiatrist Foot & Ankle Surgery
DX: M21.612 Bunion of left foot (principal); M20.12 Hallux valgus (acquired), left foot; M72.2 Plantar fascial fibromatosis; F32.9 Major depressive disorder, single episode, unspecified; F41.9 Anxiety disorder, unspecified; F43.10 Post-traumatic stress disorder, unspecified; J45.909 Unspecified asthma, uncomplicated; K21.9 Gastro-esophageal reflux disease without esophagitis; K90.41 Non-celiac gluten sensitivity; R06.83 Snoring; Z91.011 Allergy to milk products; Z91.013 Allergy to seafood; Z91.018 Allergy to other foods; Z91.040 Latex allergy status
CPT/HCPCS: 28298; 73620; 81025; 88300; 97116; C1713; J0690; J1100; J1885; J2250; J2405; J3010

== ENCOUNTER → 2020-11-30 | Outpatient (CLI) | payer OTHER ==
[~2020-11-30] MED LIST changes: -BUPIVACAINE HCL 0.5% 10ML VIAL As Ordered ONE; +HYDR-3713 PO; -LIDOCAINE 1% MDV 20ML VIAL As Ordered ONE; -LR 1,000 ML IV ONE; +ONDA4TAB6 PO; -ceFAZolin SOD 2 GM in IV 1 EA IV ONE; -dexameTHASONE 4 MG/ML 1ML VIAL (J1100 PER 1MG) As Ordered ONE
[2020-11-30 16:31] LABS: HIV 1&2 SCREEN CENTAUR NEGATIVE (NEGATIVE)
[2020-11-30 16:46] LABS: GC DNA AMPLIFICATION NEGATIVE (NEGATIVE)
== END ==
LOC: M PLALAB 12:29
PROVIDERS: ATTEND Physician Assistant
DX: Z11.3 Encounter for screening for infections with a predominantly sexual mode of transmission (principal)

== ENCOUNTER 2021-07-05 09:23 | Day surgery (SDC) | payer OTHER ==
[~2021-07-05] VITALS: Ht 154.9 cm; Wt 68.0 kg
[~2021-07-05 09:23] MED LIST changes: +ALBU8.5H; -FLUO10CA16; -FLUO10CA16 PO; +FLUO10CA18; +FLUO10CA18 PO; +LR 1,000 ML IV ONE; +ceFAZolin SOD 2 GM in IV 1 EA IV ONE
[2021-07-05] MEDS ORDERED: BUPIVACAINE HCL 0.5% 10ML VIAL As Ordered ONE (11:42)
[2021-07-05] MEDS ORDERED: LIDOCAINE 1% SDV 30ML VIAL As Ordered ONE (11:42)
[2021-07-05] MEDS ORDERED: dexameTHASONE 4 MG/ML 1ML VIAL (J1100 PER 1MG) As Ordered ONE (11:42)
[2021-07-05] MEDS ORDERED: propofoL 500 MG/50 ML VIAL As Ordered ONE (11:59)
[2021-07-05] MEDS ORDERED: MIDAZOLAM INJ 2MG/2ML VIAL (J2250 PER 1MG) As Ordered ONE (11:59)
[2021-07-05] MEDS ORDERED: fentaNYL 100 MCG/2 ML INJECTION As Ordered ONE (11:59)
[2021-07-05] MEDS ORDERED: LIDOCAINE 2% 100MG/5ML SDV (FOR ANES.) As Ordered ONE (12:02)
[2021-07-05] MEDS ORDERED: ONDANSETRON 4MG/2ML VIAL As Ordered ONE (13:03)
[2021-07-05] MEDS ORDERED: KETOROLAC 60MG 2ML VIAL As Ordered ONE (13:03)
[2021-07-05] MEDS ORDERED: ONDA-83 PO (13:27)
[2021-07-05] MEDS ORDERED: IBUP-1022 PO (13:27)
[2021-07-05] MEDS ORDERED: oxyCODONE 5MG TAB PO PRN (14:15)
[2021-07-05] MEDS ORDERED: ONDANSETRON 4MG/2ML VIAL IV PRN (14:15)
[2021-07-05] MEDS ORDERED: LR 1,000 ML IV SCH (14:15)
[2021-07-05] MEDS ORDERED: IBUPROFEN 100 MG/5 ML SUSP UDC DYE FREE PO ONE (14:40)
[2021-07-05 14:50] VITALS: BP 101/63
== END 2021-07-05 14:55 | disposition home or self-care (01) ==
LOC: M SDC 09:23
PROVIDERS: ATTEND Podiatrist Foot & Ankle Surgery
DX: T84.84XA Pain due to internal orthopedic prosthetic devices, implants and grafts, initial encounter (principal); M79.672 Pain in left foot; F43.10 Post-traumatic stress disorder, unspecified; K21.9 Gastro-esophageal reflux disease without esophagitis; G43.909 Migraine, unspecified, not intractable, without status migrainosus; F41.9 Anxiety disorder, unspecified; F32.9 Major depressive disorder, single episode, unspecified; Z79.51 Long term (current) use of inhaled steroids; Z79.899 Other long term (current) drug therapy; Z91.040 Latex allergy status; Z91.011 Allergy to milk products
CPT/HCPCS: 20680; 81025; 88300; J0690; J1100; J1885; J2250; J2405; J3010